=== PATIENT | female | born 2005 | race Two or more races ===

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

== ENCOUNTER 2024-02-26 20:30 | Emergency (ER) | payer OTHER ==
[2024-02-26 20:41] VITALS: BP 119/80; PULSE 78; RESP 18; TEMP 97.9; BMI 20.8
[2024-02-26] MEDS ORDERED: diphenhydrAMINE HCL 25 MG CAPSULE (FP) PO ONE (21:22)
[2024-02-26] MEDS: diphenhydrAMINE HCL 25 MG CAPSULE (FP) PO ONE (21:24)
== END 2024-02-26 22:05 | disposition home or self-care (01) ==
LOC: JER 20:30
DX: H05.223 Edema of bilateral orbit (principal); R21 Rash and other nonspecific skin eruption
CPT/HCPCS: 99283-25